=== PATIENT | female | born 1945 ===

== ENCOUNTER 2017-04-22 15:29 | Outpatient (CLI) | payer OTHER ==
[~2017-04-22] VITALS: Ht 152.4 cm; Wt 89.8 kg
== END 2017-04-22 15:50 | disposition home or self-care (01) ==
LOC: OFIC 805 15:29
DX: K11.8 Other diseases of salivary glands (principal)

== ENCOUNTER 2017-09-07 08:42 | Outpatient (CLI) | payer OTHER | END 2017-09-07 09:30 | disposition home or self-care (01) | LOC: NUCLEAR 08:42 | DX: K31.84 Gastroparesis (principal) | CPT/HCPCS: 78264; A9541 ==

== ENCOUNTER 2019-10-28 07:06 | Day surgery (SDC) | payer OTHER | END 2019-10-28 10:00 | disposition home or self-care (01) | LOC: AMB-ENDOS 07:06 | PROVIDERS: ATTEND Colon & Rectal Surgery | DX: K29.60 Other gastritis without bleeding (principal); K44.9 Diaphragmatic hernia without obstruction or gangrene; Z20.828 Contact with and (suspected) exposure to other viral communicable diseases ==